=== PATIENT | female | born 1965 | race Caucasian/White ===

== ENCOUNTER → 2018-02-25 | Outpatient (CLI) | payer BC | END | disposition home or self-care (01) | LOC: WOUNDCARE 09:01 | DX: T87.89 Other complications of amputation stump (principal); I11.0 Hypertensive heart disease with heart failure; I50.9 Heart failure, unspecified; Z95.0 Presence of cardiac pacemaker; Z90.49 Acquired absence of other specified parts of digestive tract; Z87.891 Personal history of nicotine dependence; Y83.5 Amputation of limb(s) as the cause of abnormal reaction of the patient, or of later complication, without mention of misadventure at the time of the procedure ==

== ENCOUNTER → 2018-03-11 | Outpatient (CLI) | payer BC | END | disposition home or self-care (01) | LOC: WOUNDCARE 02:33 → RAD 02:33 → WOUNDCARE 08:28 | DX: L97.514 Non-pressure chronic ulcer of other part of right foot with necrosis of bone (principal); M86.371 Chronic multifocal osteomyelitis, right ankle and foot ==

== ENCOUNTER → 2018-03-18 | Outpatient (CLI) | payer BC | END | disposition home or self-care (01) | LOC: WOUNDCARE 01:45 | DX: T87.89 Other complications of amputation stump (principal); L97.514 Non-pressure chronic ulcer of other part of right foot with necrosis of bone; M86.371 Chronic multifocal osteomyelitis, right ankle and foot; I11.0 Hypertensive heart disease with heart failure; I50.9 Heart failure, unspecified; Z87.891 Personal history of nicotine dependence; Y83.5 Amputation of limb(s) as the cause of abnormal reaction of the patient, or of later complication, without mention of misadventure at the time of the procedure ==

== ENCOUNTER → 2018-03-27 | Outpatient (CLI) | payer BC | END | disposition home or self-care (01) | LOC: WOUNDCARE 08:27 | DX: T87.89 Other complications of amputation stump (principal); L97.514 Non-pressure chronic ulcer of other part of right foot with necrosis of bone; M86.371 Chronic multifocal osteomyelitis, right ankle and foot; I11.0 Hypertensive heart disease with heart failure; I96 Gangrene, not elsewhere classified; Z87.891 Personal history of nicotine dependence; Y83.5 Amputation of limb(s) as the cause of abnormal reaction of the patient, or of later complication, without mention of misadventure at the time of the procedure ==

== ENCOUNTER → 2018-04-08 | Outpatient (CLI) | payer BC | END | disposition home or self-care (01) | LOC: WOUNDCARE 02:58 | DX: T87.89 Other complications of amputation stump (principal); L97.514 Non-pressure chronic ulcer of other part of right foot with necrosis of bone; M86.371 Chronic multifocal osteomyelitis, right ankle and foot; I11.0 Hypertensive heart disease with heart failure; I50.9 Heart failure, unspecified; Z87.891 Personal history of nicotine dependence; Y83.2 Surgical operation with anastomosis, bypass or graft as the cause of abnormal reaction of the patient, or of later complication, without mention of misadventure at the time of the procedure ==

== ENCOUNTER → 2018-05-20 | Outpatient (CLI) | payer BC | END | disposition home or self-care (01) | LOC: WOUNDCARE 10:23 | DX: T81.89XD Other complications of procedures, not elsewhere classified, subsequent encounter (principal); L97.512 Non-pressure chronic ulcer of other part of right foot with fat layer exposed; I11.0 Hypertensive heart disease with heart failure; I50.9 Heart failure, unspecified; Z87.891 Personal history of nicotine dependence; Y83.8 Other surgical procedures as the cause of abnormal reaction of the patient, or of later complication, without mention of misadventure at the time of the procedure ==